=== PATIENT | female | born 1960 | race Caucasian/White ===

== ENCOUNTER 2017-03-29 16:33 | Emergency (ER) | payer SELFPAY ==
[~2017-03-29] VITALS: Ht 167.6 cm; Wt 59.0 kg
[2017-03-29 17:15] VITALS: BP 121/76
[2017-03-29] MEDS ORDERED: NACL 0.9% 1,000 ML IV ONE (18:15)
[2017-03-29] MEDS ORDERED: ONDANSETRON 4 MG/2 ML VIAL IVP ONE (18:15)
[2017-03-29 18:53] LABS: BASOPHILS # (AUTO) 0.2 K/uL (0.00-0.22); EOSINOPHILS # (AUTO) 0.2 K/uL (0-0.4); HEMATOCRIT 40.9 % (36-48); HEMOGLOBIN 13.6 g/dL (12.0-16.0); MEAN CORPUSCULAR HEMOGLOBIN 32 pg (27-31); MEAN CORPUSCULAR HGB CONC 33 g/dL (33-37); MEAN CORPUSCULAR VOLUME 95 fL (80-94); MONOCYTES # (AUTO) 0.3 K/uL (0.8-1.0); NEUTROPHILS # (AUTO) 3.4 K/uL (1.8-7.7); PLATELET COUNT (AUTO) 152 K/uL (140-450); RED BLOOD CELL COUNT(AUTO) 4.29 MIL/uL (4.20-5.40); RED CELL DISTRIBUTION WIDTH 13.1 % (11.6-13.7); WHITE BLOOD COUNT (AUTO) 6.1 K/uL (4.8-10.8)
[2017-03-29 19:02] LABS: ANION GAP 14.2 (8-16); CARBON DIOXIDE 24.2 mmol/L (21-32); CREATININE 0.9 mg/dL (0.6-1.3); POTASSIUM 3.4 mmol/L (3.5-5.1)
[2017-03-29 19:07] LABS: ALBUMIN 3.8 g/dL (3.4-5.0); TOTAL BILIRUBIN 0.4 mg/dL (0.0-1.0)
[2017-03-29] MEDS ORDERED: MULTIVITAMIN-12 10 ML, THIAMINE 100 MG, MAGNESIUM SULFATE 50% 2,000 MG, FOLIC ACID 5 MG... IV ONE ×5 (19:35)
[2017-03-29] MEDS ORDERED: MAGNESIUM SULFATE 50% 1000 MG/2 ML VIAL IV ONE (19:58)
[2017-03-29] MEDS ORDERED: MULTIVITAMIN-12 10 ML VIAL IV ONE (19:58)
[2017-03-29] MEDS ORDERED: FOLIC ACID 5 MG/ML SYR ONE (19:58)
[2017-03-29] MEDS ORDERED: THIAMINE 200 MG/2 ML VIAL ONE (19:58)
[2017-03-29 23:18] LABS: APPEARANCE,URINE CLEAR (CLEAR); BILIRUBIN,URINE NEGATIVE (NEGATIVE); BLOOD, URINE NEGATIVE (NEGATIVE); COLOR,URINE YELLOW (YELLOW); LEUKOCYTE ESTERASE ,URINE NEGATIVE (NEGATIVE); NITRITE, URINE NEGATIVE (NEGATIVE); PH,URINE 5.5 (5.0-9.0); UGLUCOSE NEGATIVE (NEGATIVE)
[2017-03-29 23:28] LABS: BARBITURATE, URINE NEG. ng/ml (NEG <=200); BENZODIAZEPINE, URINE NEG. ng/mL (NEG <=200); CANNABINOID, URINE NEG. ng/mL (NEG <=50); COCAINE, URINE NEG. ng/mL (NEG <=300); OPIATE, URINE NEG. ng/mL (NEG <=2000); PHENCYCLIDINE SCREEN,URINE NEG. ng/mL (NEG <=25)
[2017-03-29 23:40] LABS: RBC,URINE 0-5 (RARE) /HPF (0-5)
[2017-03-29 23:41] LABS: URIC ACID CRYSTALS,URINE 0-10 /HPF (None Seen); WBC,URINE 0-5 (RARE) /HPF (0-5)
[2017-03-30] MEDS ORDERED: NACL 0.9% 1,000 ML IV ONE (00:05)
[2017-03-30] MEDS ORDERED: ONDANSETRON 4 MG/2 ML VIAL IVP ONE (00:05)
[2017-03-30 03:23] VITALS: BP 119/73
== END 2017-03-30 03:23 | disposition home or self-care (01) ==
LOC: MED 16:33
DX: F10.129 Alcohol abuse with intoxication, unspecified (principal); F15.129 Other stimulant abuse with intoxication, unspecified; I10 Essential (primary) hypertension; F31.9 Bipolar disorder, unspecified
CPT/HCPCS: 36415; 80053; 80305; 81001; 85025; 96365; 96366; 96375; 99285; A9153; G0482; J2405; J3411; J3475; J3490; J7030

== ENCOUNTER 2017-05-10 10:05 | Emergency (ER) | payer SELFPAY ==
[~2017-05-10] VITALS: Ht 167.6 cm; Wt 56.7 kg
[~2017-05-10 10:05] MED LIST: LORA-476 PO; QUET25TA46 PO
--- NOTE | 2017-05-10 10:05 | NUR ---
Patient BIBA BLS, transferred to bed 6. RN evaluating patient at bedside.
[2017-05-10 10:14] VITALS: BP 167/111
--- NOTE | 2017-05-10 10:14 | NUR ---
Dr. Jennings evaluating patient at bedside.
[2017-05-10] MEDS ORDERED: NACL 0.9% 1,000 ML IV ONE (10:15)
[2017-05-10] MEDS ORDERED: METOCLOPRAMIDE 10 MG/2 ML INJ VIAL IVP ONE (10:15)
--- NOTE | 2017-05-10 10:15 | NUR ---
PATIENT BROUGHT IN BY AMULANCE FROM THE STREET COMPLAINING OF NAUSEA AND ALCOHOL CONSUMPTION. ASSISTED TO BR UNSTEADY/WHEELCHAIR. PATIENT PERIODS OF TALKING REPEATEDLY AND RESTLESS. MONITORED
--- NOTE | 2017-05-10 10:15 | NUR ---
VANDANAD MADE AWARE BP 167/111. CONTINUE TO MONITOR
[2017-05-10] MEDS ORDERED: THIAMINE 200 MG/2 ML VIAL IM ONE (10:30)
[2017-05-10] MEDS ORDERED: FOLIC ACID 5 MG/ML SYR IM ONE (10:30)
[2017-05-10] MEDS ORDERED: diphenhydrAMINE 50 MG/ML VIAL IVP ONE (11:00)
--- NOTE | 2017-05-10 11:30 | NUR ---
COMMODE AT BEDSIDE
--- NOTE | 2017-05-10 11:45 | NUR ---
BP 200/75 ERMD AWARE.ASYMPTOMATIC
--- NOTE | 2017-05-10 12:32 | NUR ---
PATIENT SLEEPING AT THIS TIME. NO DISTRESS.CONTINUE TO MONITOR
--- NOTE | 2017-05-10 12:45 | NUR ---
PATIENT STATED SHE IS FEELING BETTER
--- NOTE | 2017-05-10 13:00 | NUR ---
PATIENT MORE AWAKE/ALERT/ORIENTED
--- NOTE | 2017-05-10 13:30 | NUR ---
AMBULATED STEADY GAIT. OFFERED FOOD WITH NO VOMITING.DENIES DIZZINESS
[2017-05-10 14:30] VITALS: BP 148/80
--- NOTE | 2017-05-10 14:30 | NUR ---
Patient discharged with v/s stable. Written and verbal after care instructions given and explained. Patient verbalized understanding. Ambulatory with steady gait. All questions addressed prior to discharge. Advised to follow up with PMD.
--- NOTE | 2017-05-10 14:30 | NUR ---
RESOURSE PACKET PROVIDED TO PATIENT AND SIGNED
== END 2017-05-10 14:30 | disposition home or self-care (01) ==
LOC: MED 10:05
DX: F10.129 Alcohol abuse with intoxication, unspecified (principal); I10 Essential (primary) hypertension
CPT/HCPCS: 82948; 96361; 96372; 96374; 96375; 99284; J1200; J2765; J3411; J3490; J7030

== ENCOUNTER 2017-05-12 13:53 | Emergency (ER) | payer MEDICAID ==
[~2017-05-12] VITALS: Ht 167.6 cm; Wt 68.0 kg
--- NOTE | 2017-05-12 13:55 | NUR ---
Patient BIBA to bed 12
[2017-05-12 13:57] VITALS: BP 178/93
--- NOTE | 2017-05-12 13:58 | NUR ---
56 /F COREY FROM FIELD C/O N/V & ETOH . AWAKE AND ALERT ON ARRIVAL. SKIN IS PINK/WARM/DRY; AAOX4 WITH EVEN AND STEADY GAIT; LUNGS CLEAR BL; PT DENIES ANY FEVER, CP, SOB, OR COUGH AT THIS TIME; PATIENT STATES PAIN OF 0/10 AT THIS TIME; PATIENT POSITIONED FOR COMFORT; HOB ELEVATED; BEDRAILS UP X2; BED DOWN. ER MADE AWARE OF PT STATUS. Addendum: 05/12/17 at 1423 by MED1 PER ENT PT MATH ABUSE .
[2017-05-12] MEDS ORDERED: ONDANSETRON 4 MG ODT PO ONE (14:40)
[2017-05-12 14:57] VITALS: BP 158/90
--- NOTE | 2017-05-12 14:57 | NUR ---
Patient discharged with BP158/90; DENIES HEADACHE AT THIS TIME; MD MADE AWARE. Written and verbal after care instructions given and explained. Patient verbalized understanding. Ambulatory with steady gait. All questions addressed prior to discharge. Advised to follow up with PMD.
== END 2017-05-12 14:57 | disposition home or self-care (01) ==
LOC: MED 13:53
DX: F10.20 Alcohol dependence, uncomplicated (principal); I10 Essential (primary) hypertension; F31.9 Bipolar disorder, unspecified
CPT/HCPCS: 81002; 99283; J7030; S0119

== ENCOUNTER 2017-05-12 19:15 | Emergency (ER) | payer MEDICAID ==
[~2017-05-12] VITALS: Ht 167.6 cm; Wt 63.5 kg
--- NOTE | 2017-05-12 19:15 | NUR ---
Patient was BIBA at this time.
--- NOTE | 2017-05-12 19:24 | NUR ---
Joe taken to bed 09 via jayrney per EMS.
[2017-05-12 19:25] VITALS: BP 165/101
[2017-05-12] MEDS ORDERED: MULTIVITAMIN-12 10 ML, THIAMINE 100 MG, MAGNESIUM SULFATE 50% 2,000 MG, FOLIC ACID 5 MG... IV ONE ×5 (19:30)
[2017-05-12] MEDS ORDERED: ONDANSETRON 4 MG/2 ML VIAL IVP ONE ×2 (19:30→23:45)
[2017-05-12] MEDS ORDERED: THIAMINE 200 MG/2 ML VIAL ONE (19:48)
[2017-05-12] MEDS ORDERED: FOLIC ACID 5 MG/ML SYR ONE (19:48)
[2017-05-12] MEDS ORDERED: MAGNESIUM SULFATE 50% 1000 MG/2 ML VIAL IV ONE (19:48)
[2017-05-12] MEDS ORDERED: MULTIVITAMIN-12 10 ML VIAL IV ONE (19:48)
--- NOTE | 2017-05-12 20:00 | NUR ---
56/F BIBA C/O N/V. PT WAS SEEN IN ED EARLIER C/O ABDOMINAL PAIN. PT IS AA&O X4, PERRLA. PT DENIES PAIN AT THIS TIME, PT IS NOT ACTIVELY VOMITING, PT CALM COOPERATIVE, VSS, WILL CONTINUE TO MONITOR.
[2017-05-12 20:02] LABS: BASOPHILS # (AUTO) 0.1 K/uL (0.00-0.22); BASOPHILS % (AUTO) 1.8 % (0.0-2.0); EOSINOPHILS # (AUTO) 0.2 K/uL (0-0.4); EOSINOPHILS % (AUTO) 2.1 % (0.0-4.0); HEMATOCRIT 40.3 % (36-48); HEMOGLOBIN 13.6 g/dL (12.0-16.0); LYMPHOCYTES # (AUTO) 2.8 K/uL (2.5-16.5); LYMPHOCYTES % (AUTO) 33.5 % (20.5-51.1); MEAN CORPUSCULAR HEMOGLOBIN 32 pg (27-31); MEAN CORPUSCULAR HGB CONC 34 g/dL (33-37); MEAN CORPUSCULAR VOLUME 94 fL (80-94); MONOCYTES # (AUTO) 0.5 K/uL (0.8-1.0); MONOCYTES % (AUTO) 5.8 % (1.7-9.3); NEUTROPHILS # (AUTO) 4.7 K/uL (1.8-7.7); NEUTROPHILS % (AUTO) 56.8 % (42.2-75.2); PLATELET COUNT (AUTO) 206 K/uL (140-450); RED BLOOD CELL COUNT(AUTO) 4.31 MIL/uL (4.20-5.40); RED CELL DISTRIBUTION WIDTH 12.6 % (11.6-13.7); WHITE BLOOD COUNT (AUTO) 8.3 K/uL (4.8-10.8)
[2017-05-12 20:28] LABS: ANION GAP 17.3 (8-16); CARBON DIOXIDE 24.4 mmol/L (21-32); CREATININE 0.8 mg/dL (0.6-1.3); POTASSIUM 3.7 mmol/L (3.5-5.1)
[2017-05-12 20:31] LABS: PROTHROMBIN TIME 10.4 secs (10.8-13.4)
[2017-05-12 20:37] LABS: ALBUMIN 3.8 g/dL (3.4-5.0)
--- NOTE | 2017-05-12 20:50 | NUR ---
PT IN BED SLEEPING.
[2017-05-12] MEDS ORDERED: PANTOPRAZOLE 40 MG INJ VIAL IVP ONE (21:00)
--- NOTE | 2017-05-13 01:13 | NUR ---
PT IN BED SLEEPING, WILL CONTINUE TO MONITOR.
--- NOTE | 2017-05-13 05:17 | NUR ---
Pt resting comfortably at this time. VSS. No distress noted.
--- NOTE | 2017-05-13 05:41 | NUR ---
IV removed, catheter intact and site benign. Applied folded 4x4 gauze and tape to stop bleeding.
[2017-05-13 05:46] VITALS: BP 133/91
== END 2017-05-13 05:45 | disposition home or self-care (01) ==
LOC: MED 19:15
DX: F10.129 Alcohol abuse with intoxication, unspecified (principal); K29.20 Alcoholic gastritis without bleeding; I10 Essential (primary) hypertension
CPT/HCPCS: 36415; 80053; 82948; 85025; 85610; 85730; 96365; 96375; 96376; 99284; A9153; C9113; G0482; J2405; J3411; J3475; J3490

== ENCOUNTER 2017-10-04 12:49 | Emergency (ER) | payer SELFPAY ==
[~2017-10-04] VITALS: Ht 167.6 cm; Wt 61.2 kg
[2017-10-04 13:07] VITALS: BP 125/78
--- NOTE | 2017-10-04 13:16 | NUR ---
PT TAKEN BY WHEEL CHAIR TO ER BED 01
--- NOTE | 2017-10-04 13:35 | NUR ---
57 YO F BIB friend w/ c/o left foot/ankle pain. Pt states that her left foot or ankle is broken. Pt lifted her whole leg up, rotating ankle, and wiggling toes. Pt denies pain at this time, reporting pain at 0/10. She is stating that her foot feels numb. Capillary refill less than 3 seconds, foot is warm to the touch w/o any skin discoloration. CMS intact. Pt a & o x 4, but is under the influence of ETOH, as reported by pt. Pt slurring her words, incoherent at times. No s/s of respiratory distress at this time. Skin intact. ER MD Stuart notified of pt condition. Safety precautions initiated. Pt needs met at this time. Will continue to monitor.
--- NOTE | 2017-10-04 14:01 | NUR ---
Pt keeps getting out of bed and ambulating to the nurses station w/ steady gait at this time. Pt educated on importance of staying in bed for her safety related to possible foot injury and ETOH intoxication.
--- NOTE | 2017-10-04 15:04 | NUR ---
Pt refused to sign the discharge paper work. Pt was accepting of discharge with understanding of diagnosis and after care instructions. pt VSS. Bus pass given per pt request.
[2017-10-04 15:05] VITALS: BP 126/72
--- NOTE | 2017-10-04 15:05 | NUR ---
Patient discharged with v/s stable. Written and verbal after care instructions given and explained. Patient alert, oriented and verbalized understanding of instructions. Wheel Chair Assisted with steady gait. All questions addressed prior to discharge. ID band removed. Patient advised to follow up with PMD. Rx of ibuprofen 600mg given. Patient educated on indication of medication including possible reaction and side effects. Opportunity to ask questions provided and answered.
== END 2017-10-04 15:05 | disposition home or self-care (01) ==
LOC: MED 12:49
DX: S82.301D Unspecified fracture of lower end of right tibia, subsequent encounter for closed fracture with routine healing (principal); I10 Essential (primary) hypertension; F17.210 Nicotine dependence, cigarettes, uncomplicated; X58.XXXD Exposure to other specified factors, subsequent encounter; F10.129 Alcohol abuse with intoxication, unspecified; Z71.6 Tobacco abuse counseling
CPT/HCPCS: 73600; 99284; Q0092

== ENCOUNTER 2019-03-09 15:15 | Inpatient (IN) | payer MEDICAID ==
[~2019-03-09] VITALS: Ht 162.6 cm; Wt 70.3 kg
[2019-03-09 15:15] VITALS: BP 176/105
--- NOTE | 2019-03-09 15:15 | NUR ---
PT TO BED 5, SUICIDE PRECAUTIONS IN PLACE, UNDER DIRECT OBSERVATION
--- NOTE | 2019-03-09 15:36 | NUR ---
PER EMS, PATIENT WAS WHEELCHAIRING HERSELF ONTO ONCOMING TRAFFIC ON [address]. PER OFFICER MEGAN Looney/ HERMELINDA BOYD PT ON 5150 HOLD FOR DANGER TO SELF. PT REFUSING TO ANSWER MY QUESTIONS AT THIS TIME. PT ADMITS TO ETOH PMH- PATIENT DENIES
--- NOTE | 2019-03-09 15:55 | NUR ---
PT WHEELCHAIRED TO RESTROOM, UNABLE TO GIVE URINE AT THIS TIME
[2019-03-09 16:08] LABS: BASOPHILS # (AUTO) 0.1 K/uL (0.00-0.22); BASOPHILS % (AUTO) 0.8 % (0.0-2.0); EOSINOPHILS # (AUTO) 0.1 K/uL (0-0.4); EOSINOPHILS % (AUTO) 1.8 % (0.0-4.0); HEMATOCRIT 41.6 % (36-48); LYMPHOCYTES # (AUTO) 2.2 K/uL (2.5-16.5); LYMPHOCYTES % (AUTO) 33.4 % (20.5-51.1); MEAN CORPUSCULAR HEMOGLOBIN 32 pg (27-31); MEAN CORPUSCULAR HGB CONC 34 g/dL (33-37); MEAN CORPUSCULAR VOLUME 94.3 fL (80-94); MONOCYTES # (AUTO) 0.4 K/uL (0.8-1.0); MONOCYTES % (AUTO) 5.5 % (1.7-9.3); NEUTROPHILS # (AUTO) 3.8 K/uL (1.8-7.7); NEUTROPHILS % (AUTO) 58.5 % (42.2-75.2); PLATELET COUNT (AUTO) 160 K/uL (140-450); RED BLOOD CELL COUNT(AUTO) 4.41 MIL/uL (4.20-5.40); WHITE BLOOD COUNT (AUTO) 6.5 K/uL (4.8-10.8)
--- NOTE | 2019-03-09 16:14 | NUR ---
PT WHEEL CHAIRED TO BATHROOM AT THIS TIME TO GIVE URINE SAMPLE, HOLLY RN IS WITH PT
[2019-03-09 16:28] LABS: ANION GAP 15.1 (8-16); CARBON DIOXIDE 24.6 mmol/L (21-32); CHLORIDE 106 mmol/L (98-107); CREATININE 0.8 mg/dL (0.6-1.3); GFR ARICAN-AMERICAN 95 mL/min (>90); GLUCOSE 100 mg/dL (74-106); POTASSIUM 3.7 mmol/L (3.5-5.1); SODIUM SERUM 142 mmol/L (136-145); UREA NITROGEN, BLOOD 14 mg/dL (7-18)
[2019-03-09 16:35] LABS: ACETAMINOPHEN < 0.5 ug/ml (10-30); ALBUMIN 3.9 g/dL (3.4-5.0); ASPARTATE AMINOTRANSFERASE 21 U/L (15-37); SALICYLATE < 2.8 mg/dL (2.8-20.0)
--- NOTE | 2019-03-09 17:11 | NUR ---
PT IS SLEEPING, FOOD TRAY HAS BEEN BROUGHT, BETTINA RN IS SITTING AT BEDSIDE.
--- NOTE | 2019-03-09 18:02 | NUR ---
PT SLEEPING, O2 SAT 96%. FLASH EMT SITTING AT BEDSIDE.
[2019-03-09 18:30] LABS: APPEARANCE,URINE CLEAR (CLEAR); BILIRUBIN,URINE NEGATIVE (NEGATIVE); BLOOD, URINE NEGATIVE (NEGATIVE); COLOR,URINE YELLOW (YELLOW); LEUKOCYTE ESTERASE ,URINE NEGATIVE (NEGATIVE); NITRITE, URINE NEGATIVE (NEGATIVE); PH,URINE 5.5 (5.0-9.0); UGLUCOSE NEGATIVE (NEGATIVE)
[2019-03-09 18:37] LABS: BARBITURATE, URINE NEG. ng/ml (NEG <=200); BENZODIAZEPINE, URINE NEG. ng/mL (NEG <=200); CANNABINOID, URINE NEG. ng/mL (NEG <=50); COCAINE, URINE NEG. ng/mL (NEG <=300); OPIATE, URINE NEG. ng/mL (NEG <=2000); PHENCYCLIDINE SCREEN,URINE NEG. ng/mL (NEG <=25)
--- NOTE | 2019-03-09 18:56 | NUR ---
PT SITTING UP IN BED, EATING DINNER. PT DENIES PAIN AT THIS TIME, CALM AND COOPERATIVE.
--- NOTE | 2019-03-09 19:06 | NUR ---
pt hypertensive w/ bp 195/83, er notified
--- NOTE | 2019-03-09 19:25 | NUR ---
RECEIVED BEDSIDE REPORT FROM MIGUEL JUNIOR
[2019-03-09] MEDS ORDERED: NACL 0.9% 1,000 ML IV ONE (21:25)
--- NOTE | 2019-03-09 21:47 | NUR ---
PER TELEPSCYH REQUEST INTIATED
--- NOTE | 2019-03-09 22:50 | NUR ---
PT UNCOOPERATIVE WITH CALL FROM PSYCH
--- NOTE | 2019-03-10 01:26 | NUR ---
PT IS SLEEPING IN BED. SITTER AT BEDSIDE. VSS. WILL CONTINUE TO MONITOR.
--- NOTE | 2019-03-10 02:18 | NUR ---
PER JAYLA PACKETS FAXED TO THE FOLLOWING DESIGNATED FACILITIES, [facility], [facility], [facility], PACKETS UNDER REVIEW NO BEDS AT THIS TIME, WILL NOTIFY ER WHEN PLACEMENT IS FOUND
--- NOTE | 2019-03-10 02:32 | NUR ---
PT SLEEPING IN BED NO SIGNS OF DISTRESS. NO PAIN NOTED. EVEN UNLABORED BREATHING. WILL CONTINUE TO MONITOR.
[2019-03-10] MEDS ORDERED: ACETAMINOPHEN 325 MG TAB PO PRN (02:40)
[2019-03-10] MEDS ORDERED: FAMOTIDINE 20 MG/2 ML VIAL IV PRN (02:40)
[2019-03-10] MEDS ORDERED: HYDROcodone/APAP 5/325 MG 1 TAB TAB PO PRN (02:40)
[2019-03-10] MEDS ORDERED: DOCUSATE SODIUM 100 MG GELCAP PO PRN (02:40)
[2019-03-10] MEDS ORDERED: ONDANSETRON 4 MG/2 ML VIAL IM/IVP PRN (02:40)
[2019-03-10] MEDS ORDERED: LORazepam 2 MG/ML VIAL IVP PRN (02:45)
[2019-03-10] MEDS ORDERED: THIAMINE 200 MG/2 ML VIAL IM ONE (02:45)
--- NOTE | 2019-03-10 02:52 | NUR ---
X RAY AT BEDSIDE
[2019-03-10 03:20] VITALS: BP 162/98
--- NOTE | 2019-03-10 03:20 | NUR ---
Patient will be admitted to care of [facility]. Admited to TELE. Will go to room 109B. Belongings list completed. Report to ENEIDA BORREGO.
--- NOTE | 2019-03-10 03:20 | NUR ---
PATIENT ADMITTED TO THE UNIT FROM ED. PATIENT AWAKE, ALERT AND ORIENTED. PT DENIES ANY SUICIDAL IDEATION AT THIS TIME. [facility] NO S/S OF DISTRESS AT THIS TIME. PT ON ROOM AIR. NO SOB NO C/O CHEST PAIN. PATIENT PLACED ON TELE MONITORING. BED LOWERED WITH CALL LIGHT WITHIN REACH. PATIENT WITH SITTER. WILL CONTINUE TO MONITOR
[2019-03-10 03:42] LABS: EOSINOPHILS # (AUTO) 0.1 K/uL (0-0.4); LYMPHOCYTES # (AUTO) 1.5 K/uL (2.5-16.5); MONOCYTES # (AUTO) 0.5 K/uL (0.8-1.0); RED BLOOD CELL COUNT(AUTO) 4.06 MIL/uL (4.20-5.40)
[2019-03-10 03:43] LABS: CHOL/HDL RATIO 2.9 (1-4.5); FREE T4 (FREE THYROXINE) 0.68 ng/dL (0.76-1.46); MAGNESIUM 1.5 mg/dL (1.8-2.4); PHOSPHORUS 3.4 mg/dL (2.5-4.9); THYROID STIMULATING HORMONE 1.41 uIU/mL (0.34-3.74)
[2019-03-10] MEDS: NACL 0.9% 1,000 ML IV SCH ×3 (03:57→23:10)
[2019-03-10 04:02] LABS: PROTHROMBIN TIME 10.2 secs (10.8-13.4)
[2019-03-10 04:07] LABS: BASOPHILS % (AUTO) 0.3 % (0.0-2.0); EOSINOPHILS % (AUTO) 1.7 % (0.0-4.0); HEMATOCRIT 38.3 % (36-48); LYMPHOCYTES % (AUTO) 20.6 % (20.5-51.1); MEAN CORPUSCULAR HEMOGLOBIN 32 pg (27-31); MEAN CORPUSCULAR HGB CONC 34 g/dL (33-37); MEAN CORPUSCULAR VOLUME 94.2 fL (80-94); MONOCYTES % (AUTO) 6.8 % (1.7-9.3); NEUTROPHILS # (AUTO) 5.3 K/uL (1.8-7.7); NEUTROPHILS % (AUTO) 70.6 % (42.2-75.2); PLATELET COUNT (AUTO) 171 K/uL (140-450); RED CELL DISTRIBUTION WIDTH 13.1 % (11.6-13.7); WHITE BLOOD COUNT (AUTO) 7.5 K/uL (4.8-10.8)
[2019-03-10] MEDS ORDERED: hydrALAZINE 20 MG/ML VIAL IVP PRN (04:10)
--- NOTE | 2019-03-10 04:35 | NUR ---
NOTIFIED DR DODGE ABOUT THE ST DEPRESSION ON PATIENT'S ADMIT STRIP. NO S/S OF DISTRESS NOTED AT THIS TIME. TO PUT AN ORDER TO REPEAT EKG
[2019-03-10] MEDS ORDERED: MAG SULF 2000 MG/WATER PREMIX 50 ML IV ONE (04:40)
[2019-03-10] MEDS: chlordiazePOXIDE 25 MG CAP PO SCH ×4 (05:00→23:09)
[2019-03-10 05:02] LABS: ANION GAP 16.3 (8-16); CARBON DIOXIDE 22.6 mmol/L (21-32); CREATININE 0.7 mg/dL (0.6-1.3); POTASSIUM 3.9 mmol/L (3.5-5.1)
[2019-03-10 07:23] VITALS: BP 152/96
--- NOTE | 2019-03-10 07:33 | NUR ---
PATIENT REPORT GIVEN AT BEDSIDE. PATIENT ENDORSED IN STABLE CONDITION
--- NOTE | 2019-03-10 07:34 | NUR ---
RECEIVED REPORT FROM SANDER AND POLISHER NURSE. PT LYING IN BED, AAOX4, NO C/O PAIN AT THIS TIME. PT ON SOLUTIONS DEVELOPMENT ANALYST D/T DX ALCOHOL INTOXICATION. IV ON LT AC 18 GA RUNNING IVF PER ORDER. RESPIRATIONS EVEN AND UNLABORED ON RA. ACTIVE BOWEL SOUNDS THROUGHOUT, ABD SOFT. SKIN IS INTACT, WARM TO TOUCH. REVIEWED POC WITH PT, PT VERBALIZED UNDERSTANDING.
[2019-03-10 08:00] VITALS: BP 146/92
[2019-03-10] MEDS: OLANZapine 5 MG TAB PO SCH (08:01)
[2019-03-10] MEDS: LISINOPRIL 5 MG TAB PO SCH (08:01)
[2019-03-10] MEDS: ATORVASTATIN 20 MG TAB PO SCH (08:01)
[2019-03-10] MEDS: LORazepam 2 MG/ML VIAL IVP PRN (08:02)
--- NOTE | 2019-03-10 08:02 | NUR ---
PT IS SHOWS SIGNS OF ANXIETY, UNEASY AND RESTLESS IN BED, TURNING LEFT TO RIGHT. STATES "CAN I GET SOMETHING FOR DISCOMFORT, I'M A LITTLE ANXIOUS". GIVEN ATIVAN PER ORDER. PT ALSO STATES, "I HAVE A YEAST INFECTION", WILL CHECK LABS AND NOTIFY DR. KYLE. WILL REASSESS PT WITHIN 1 HOUR.
--- NOTE | 2019-03-10 08:22 | NUR ---
PATIENT HAS BEEN SCREENED AND CATEGORIZED LOW NUTRITION RISK. PATIENT WILL BE SEEN WITHIN 7 DAYS OF ADMISSION. 03/16/[address]
--- NOTE | 2019-03-10 08:23 | NUR ---
DR. KYLE NOTIFIED REGARDING PT'S CONCERNS. NO ORDERS RECEIVED AT THIS TIME, AWAITING ORDERS AND LAB RESULTS.
[2019-03-10] MEDS: MULTIVITAMIN-12 10 ML, THIAMINE 100 MG, FOLIC ACID 1 MG, MAGNESIUM SULFATE 50% 2,000 MG... IV SCH ×10 (08:42→17:10)
[2019-03-10] MEDS ORDERED: QUEtiapine FUMARATE 25 MG TAB PO SCH (09:00)
--- NOTE | 2019-03-10 09:02 | NUR ---
PT HAS NO SIGNS OF DISTRESS, RESTING COMFORTABLY IN BED ON LEFT LATERAL SIDE. RESPIRATIONS EVEN AND UNLABORED ON RA. 1:1 SITTER AT BEDSIDE.
[2019-03-10 12:00] VITALS: BP 145/85
--- NOTE | 2019-03-10 13:57 | NUR ---
GIVEN LIBRIUM PER ORDER. PT HAS NO SIGNS OF DISTRESS AT THIS TIME. RESPIRATIONS EVEN AND UNLABORED ON RA.
--- NOTE | 2019-03-10 14:29 | NUR ---
SW attempted to conduct assessment with patient. Patient was asleep and was not responding to SW calling patient's name. SW will follow up at a later time to complete assessment.
--- NOTE | 2019-03-10 14:52 | NUR ---
[facility] s/w Beatriz, no beds [facility] s/w Gnosticist packet faxed [place] s/w Jazzy no beds but packet faxed for transfer [facility] s/w Clifton no beds [facility] s/w Keeley no beds [facility] s/w Stephanie packet faxed [facility] Nasreen no beds but packet fax for wait list
[2019-03-10 16:00] VITALS: BP 143/84
--- NOTE | 2019-03-10 16:45 | NUR ---
PT IS RESTING AT THIS TIME. RESPIRATIONS EVEN AND UNLABORED ON RA.
--- NOTE | 2019-03-10 18:44 | NUR ---
GIVEN LIBRIUM PER ORDER. PT HAS NO SIGNS OF ANXIETY. RESTING COMFORTABLY IN BED.
--- NOTE | 2019-03-10 19:10 | NUR ---
ENDORSED PT TO CLOUD OPERATIONS ENGINEER NURSE. PT HAS NO SIGNS OF DISTRESS AT THIS TIME.
--- NOTE | 2019-03-10 19:15 | NUR ---
RECEIVED PT ON BED, AAOX4, ABLE TO MAKE NEEDS KNOWN, DENIES ANY PAIN, CALM AND COOPERATIVE, IVF INFUSING WELL, IVF INFUSING WELL, SAFETY AND SEIZURE PRECAUTION IN PLACE, SITTER AT BEDSIDE.
[2019-03-10 20:00] VITALS: BP 129/69
--- NOTE | 2019-03-10 21:25 | NUR ---
EASILY AROUSABLE, DUE HEPARIN SUB-Q ADMINISTERED, PT WENT BACK TO SLEEP, ALL NEEDS ATTENDED.
--- NOTE | 2019-03-10 23:10 | NUR ---
PT SLEEPING, EASILY AROUSABLE, CALM AND COOPERATIVE, DENIES ANXIETY, VITAL SIGNS STABLE, DUE LIBRIUM ADMINISTERED, IVF INFUSING WELL, CONTINUE TO MONITOR CLOSELY.
[2019-03-11] VITALS: BP 115/70
[2019-03-11] MEDS: MULTIVITAMIN-12 10 ML, THIAMINE 100 MG, FOLIC ACID 1 MG, MAGNESIUM SULFATE 50% 2,000 MG... IV SCH ×5 (03:20)
--- NOTE | 2019-03-11 03:40 | NUR ---
PT SLEEPING, EASILY AROUSABLE, VITAL SIGNS STABLE, DENIES ANY PAIN, IVF INFUSING WELL, OT WENT BACK TO SLEEP, SITTER IN PLACE, MONITORED CLOSELY.
[2019-03-11 04:00] VITALS: BP 136/81
--- NOTE | 2019-03-11 04:33 | NUR ---
Continuing to monitor patient notes and resend intake paperwork for placement. The following facilities have been called for bed status. [facility] - [place] - No Beds [facility] - [place] - Sent intake paperwork for possible placement in morning [facility] - Becki - No Beds [facility] - Sent intake paperwork for possible placement in morning [facility] - [place] - Sent intake paperwork for possible placement in morning [facility] - [place] - Sent intake paperwork for possible placement in morning [facility] - No Beds
[2019-03-11] MEDS: chlordiazePOXIDE 25 MG CAP PO SCH ×4 (05:25→23:16)
--- NOTE | 2019-03-11 05:30 | NUR ---
DUE LIBRIUM GIVEN, NO SEIZURE ACTIVITY THE WHOLE, CALM AND COOPERATIVE, MONITORED CLOSELY.
--- NOTE | 2019-03-11 07:10 | NUR ---
PT SLEEPING, NO SIGNS OF DISTRESS, SITTER IN PLACE, REPORT GIVEN TO ELMO ALMENDAREZ FOR CONTINUITY OF CARE.
--- NOTE | 2019-03-11 07:11 | NUR ---
RECEIVED REPORT FROM INDUCTION COORDINATION POWER ENGINEER NURSE. PT AAOX4, NO C/O PAIN AT THIS TIME. PT ON SUPERVISOR INTERMEDIATES. IV ON LT AC 18 GA RUNNING IVF PER ORDER. RESPIRATIONS EVEN AND UNLABORED ON RA. ABD SOFT, ACTIVE BOWEL SOUNDS THROUGHOUT. SKIN IS INTACT, WARM TO TOUCH. REVIEWED POC WITH PT, PT VERBALIZED UNDERSTANDING.
[2019-03-11 08:00] VITALS: BP 141/85
[2019-03-11] MEDS: ATORVASTATIN 20 MG TAB PO SCH (09:17)
[2019-03-11] MEDS: OLANZapine 5 MG TAB PO SCH (09:17)
[2019-03-11] MEDS: NACL 0.9% 1,000 ML IV SCH ×2 (09:17→16:33)
[2019-03-11] MEDS: LISINOPRIL 5 MG TAB PO SCH (09:17)
--- NOTE | 2019-03-11 09:17 | NUR ---
PT GIVEN MORNING MEDICATIONS, COOPERATIVE AND CALM. PT HAS NO SIGNS OF ANXIETY.
--- NOTE | 2019-03-11 11:42 | NUR ---
We have no new updates from the following facilities: [facility] Carlos Antonio
--- NOTE | 2019-03-11 13:08 | NUR ---
PT IS RESTING, PT SAYS "NO" WHEN ASKED IF SHE HAS THOUGHTS OF HURTING HERSELF. GIVEN LIBRIUM PER ORDER, NO SIGNS OF ANXIETY OR DISTRESS AT THIS TIME.
--- NOTE | 2019-03-11 15:37 | NUR ---
Packet re-faxed to [facility] for review.
[2019-03-11 16:00] VITALS: BP 143/89
[2019-03-11 16:17] LABS: ANION GAP 11.9 (8-16); BASOPHILS % (AUTO) 0.5 % (0.0-2.0); CARBON DIOXIDE 26.9 mmol/L (21-32); CREATININE 0.7 mg/dL (0.6-1.3); EOSINOPHILS # (AUTO) 0.1 K/uL (0-0.4); EOSINOPHILS % (AUTO) 2.7 % (0.0-4.0); HEMATOCRIT 37.9 % (36-48); HEMOGLOBIN 12.8 g/dL (12.0-16.0); LYMPHOCYTES # (AUTO) 1.1 K/uL (2.5-16.5); LYMPHOCYTES % (AUTO) 28.7 % (20.5-51.1); MEAN CORPUSCULAR HEMOGLOBIN 32 pg (27-31); MEAN CORPUSCULAR HGB CONC 34 g/dL (33-37); MEAN CORPUSCULAR VOLUME 95.2 fL (80-94); MONOCYTES # (AUTO) 0.3 K/uL (0.8-1.0); MONOCYTES % (AUTO) 8.4 % (1.7-9.3); NEUTROPHILS # (AUTO) 2.3 K/uL (1.8-7.7); NEUTROPHILS % (AUTO) 59.7 % (42.2-75.2); PLATELET COUNT (AUTO) 163 K/uL (140-450); POTASSIUM 3.8 mmol/L (3.5-5.1); RED BLOOD CELL COUNT(AUTO) 3.99 MIL/uL (4.20-5.40); RED CELL DISTRIBUTION WIDTH 13.3 % (11.6-13.7); WHITE BLOOD COUNT (AUTO) 3.9 K/uL (4.8-10.8)
[2019-03-11 16:20] LABS: MAGNESIUM 1.6 mg/dL (1.8-2.4)
[2019-03-11] MEDS ORDERED: LACTOBACILLUS RHAMNOSUS GG 1 EACH CAP PO SCH (17:09)
--- NOTE | 2019-03-11 17:46 | NUR ---
IV ROCEPHIN ADMINISTERED, PT IS AWARE OF POSSIBLE SIDE EFFECTS.
[2019-03-11] MEDS ORDERED: FLUCONAZOLE 100 MG TAB PO SCH (18:00)
[2019-03-11] MEDS ORDERED: MAG SULF 2000 MG/WATER PREMIX 50 ML IV SCH (18:00)
--- NOTE | 2019-03-11 18:56 | NUR ---
PT GIVEN MAGNESIUM, PT IS AWARE OF LOW MAG LEVEL.
--- NOTE | 2019-03-11 19:30 | NUR ---
ASSUMED CARE OF PATIENT, AWAKE, NO COMPLAINS. PLAN OF CARE DISCUSSED WITH PATIENT, NEEDS REINFORCEMENT. NO DISTRESS OR DISCOMFORT NOTED.
--- NOTE | 2019-03-11 19:35 | NUR ---
ENDORSED PT TO DESIZING MACHINE OPERATOR HEAD END NURSE. NO SIGNS OF DISTRESS AT THIS TIME.
[2019-03-11] MEDS: LORazepam 2 MG/ML VIAL IVP PRN (20:26)
--- NOTE | 2019-03-11 21:30 | NUR ---
USE BEDPAN, TOLERATED WELL. NO COMPLAINS. SITTER AT BEDSIDE AT ALL TIMES.
[2019-03-12 00:18] VITALS: BP 137/83
--- NOTE | 2019-03-12 00:20 | NUR ---
VITAL SIGNS STABLE. NO COMPLAINS. SLEEPING WELL. SITTER BEDSIDE 1:1.
--- NOTE | 2019-03-12 02:00 | NUR ---
ASLEEP. NO COMPLAINS. SITTER AT BEDSIDE AT ALL TIME.
--- NOTE | 2019-03-12 03:55 | NUR ---
Follow up calls were made to contracted facilities, still no bed vacancies at this time and during this shift. [facility], spoke with [place]. [facility], spoke with Garry. [facility], spoke with Ivan. [facility], spoke with Mandy. [facility], spoke with Carol. [facility], spoke with Najma,
--- NOTE | 2019-03-12 04:51 | NUR ---
AM CARE DONE, COMPLETE BED LINEN CHANGE. PERICARE DONE. NO COMPLAINS. SITTER AT BEDSIDE AT ALL TIME.
[2019-03-12] MEDS: NACL 0.9% 1,000 ML IV SCH (05:17)
[2019-03-12] MEDS: chlordiazePOXIDE 25 MG CAP PO SCH ×3 (05:35→18:04)
--- NOTE | 2019-03-12 06:00 | NUR ---
ENDORSE CARE AT BEDSIDE FOR KALEN ROWLEY.
[2019-03-12 06:07] LABS: FOLIC ACID 5.5 ng/mL (>3.0)
--- NOTE | 2019-03-12 07:14 | NUR ---
ENDORSED CARE AT BEDSIDE WITH SHERIE, PATIENT IN STABLE CONDITION.
--- NOTE | 2019-03-12 07:15 | NUR ---
Received bedside report from pm nurse Selam. Pt amb from restroom back to bed with 1-person min assist. Pt in no distress, respirations even & unlabored. Left AC IV intact with ongoing NS @ 100ml/hr. Sitter at bedside for continuous monitoring.
[2019-03-12 07:17] LABS: CARBON DIOXIDE 25.1 mmol/L (21-32); CREATININE 0.6 mg/dL (0.6-1.3); POTASSIUM 4.1 mmol/L (3.5-5.1)
[2019-03-12 07:21] LABS: MAGNESIUM 1.7 mg/dL (1.8-2.4); PHOSPHORUS 4.2 mg/dL (2.5-4.9)
[2019-03-12 07:46] LABS: BASOPHILS % (AUTO) 0.5 % (0.0-2.0); EOSINOPHILS # (AUTO) 0.1 K/uL (0-0.4); EOSINOPHILS % (AUTO) 2.7 % (0.0-4.0); HEMATOCRIT 38.6 % (36-48); LYMPHOCYTES # (AUTO) 1.1 K/uL (2.5-16.5); MEAN CORPUSCULAR HEMOGLOBIN 32 pg (27-31); MEAN CORPUSCULAR HGB CONC 34 g/dL (33-37); MEAN CORPUSCULAR VOLUME 95.6 fL (80-94); MONOCYTES # (AUTO) 0.4 K/uL (0.8-1.0); NEUTROPHILS # (AUTO) 2.9 K/uL (1.8-7.7); NEUTROPHILS % (AUTO) 63.8 % (42.2-75.2); PLATELET COUNT (AUTO) 189 K/uL (140-450); RED BLOOD CELL COUNT(AUTO) 4.04 MIL/uL (4.20-5.40); RED CELL DISTRIBUTION WIDTH 13.6 % (11.6-13.7); WHITE BLOOD COUNT (AUTO) 4.6 K/uL (4.8-10.8)
[2019-03-12 08:00] VITALS: BP 142/97
[2019-03-12] MEDS: LISINOPRIL 5 MG TAB PO SCH (09:25)
[2019-03-12] MEDS: ATORVASTATIN 20 MG TAB PO SCH (09:25)
[2019-03-12] MEDS: OLANZapine 5 MG TAB PO SCH (09:25)
[2019-03-12] MEDS: LACTOBACILLUS RHAMNOSUS GG 1 EACH CAP PO SCH (09:26)
[2019-03-12] MEDS ORDERED: MAGNESIUM OXIDE 400 MG TAB PO SCH (09:30)
--- NOTE | 2019-03-12 09:31 | NUR ---
Pt c/o no BM x4days, states she usually has BM daily prior to admission, denies any abd discomfort. DSS administered with 2 cups of prune juice. Encouraged pt to drink plenty of fluids as rosetta, verbalized understanding & agree with POC.
--- NOTE | 2019-03-12 10:47 | NUR ---
RECEIVED A CALL FROM [facility], SHE STATED THAT THEY NEED DOCUMENTATION THAT THE PATIENT IS MEDICALLY CLEARED AND 5150 HOLD NEED TO BE RENEWED SO THEY CAN SEND OUT REFERRALS TO IN PATIENT PSYCH FACILITIES. CHARGE NURSE AND DR. AMY WEISS.
--- NOTE | 2019-03-12 11:33 | NUR ---
Contacted [facility] spoke with Reconstructive Dentist,Shannon, regarding clarification of medical clearance. Per Shannon, she spoke with Charge Nurse and patient is medically cleared. Advised her to add documentation to the chart of medical clearance for us to fax to facilities for potential placement. Also, advised of 5150 expiring today, per Shannon she will follow up with clinician.
[2019-03-12 16:00] VITALS: BP 134/86
--- NOTE | 2019-03-12 19:17 | NUR ---
Report given to pm nurse Vince.
--- NOTE | 2019-03-12 19:18 | NUR ---
Received endorsement from AM shift RN; patient resting comfortably in bed. Introduced self. No SOB or distress noted, on room air. IV site on left antecubital, 18 gauge, running IVF at 100mL/hr. Bed in the lowest position, call light within reach. Initial assessment done. Will continue to monitor.
--- NOTE | 2019-03-12 20:41 | NUR ---
Dr. Springer at bedside; discontinued hold and verbalized patient is medically cleared to be discharged 03/13/2019 in AM.
--- NOTE | 2019-03-12 21:50 | NUR ---
Due meds given, tolerated well.
--- NOTE | 2019-03-12 23:50 | NUR ---
Vitals taken, no distress noted. Patient dislodged IV; cannula removed, tip intact. Made Dr. Parnell aware.
[2019-03-13] VITALS: BP 153/76
[2019-03-13] MEDS: chlordiazePOXIDE 25 MG CAP PO SCH ×3 (00:08→11:33)
[2019-03-13] MEDS ORDERED: LORazepam 1 MG TAB PO PRN (02:25)
--- NOTE | 2019-03-13 02:25 | NUR ---
Patient awake and agitated, asking for her wheelchair and "bag". Security notified and verbalized to patient that it will be kept by security till patient is discharged. Patient calmed down and went to bed.
--- NOTE | 2019-03-13 04:20 | NUR ---
Room assignment changed to 124B. No distress noted.
--- NOTE | 2019-03-13 06:06 | NUR ---
Vitals stable, due meds given. Will endorse to AM shift RN for continuity of care.
--- NOTE | 2019-03-13 07:05 | NUR ---
REPORT RECEIVED FROM CATERERS HELPER NURSE AT BEDSIDE FOR CONTINUITY OF CARE. PATIENT ASLEEP, AOX4. RESPIRATIONS EVEN AND UNLABORED ON ROOM AIR, NO SIGN OF DISTRESS OR SOB NOTED. FLACC-0. NO IV SITE. PATIENT DISLODGED IV DURING NIGHT, REFUSED NEW INSERTION AT THE MOMENT. UPDATED BOARD. SAFETY PRECAUTIONS IN PLACE, CALL LIGHT WITHIN REACH, WILL CONTINUE TO MONITOR PATIENT.
[2019-03-13 07:27] LABS: BASOPHILS % (AUTO) 0.4 % (0.0-2.0); EOSINOPHILS # (AUTO) 0.1 K/uL (0-0.4); EOSINOPHILS % (AUTO) 3.2 % (0.0-4.0); HEMATOCRIT 39.7 % (36-48); HEMOGLOBIN 13.6 g/dL (12.0-16.0); LYMPHOCYTES # (AUTO) 1.1 K/uL (2.5-16.5); LYMPHOCYTES % (AUTO) 22.6 % (20.5-51.1); MEAN CORPUSCULAR HEMOGLOBIN 33 pg (27-31); MEAN CORPUSCULAR HGB CONC 34 g/dL (33-37); MEAN CORPUSCULAR VOLUME 95.3 fL (80-94); MONOCYTES # (AUTO) 0.4 K/uL (0.8-1.0); MONOCYTES % (AUTO) 7.6 % (1.7-9.3); NEUTROPHILS # (AUTO) 3.1 K/uL (1.8-7.7); NEUTROPHILS % (AUTO) 66.2 % (42.2-75.2); PLATELET COUNT (AUTO) 169 K/uL (140-450); RED BLOOD CELL COUNT(AUTO) 4.16 MIL/uL (4.20-5.40); RED CELL DISTRIBUTION WIDTH 13.5 % (11.6-13.7); WHITE BLOOD COUNT (AUTO) 4.7 K/uL (4.8-10.8)
[2019-03-13 07:41] LABS: ANION GAP 11.8 (8-16); CARBON DIOXIDE 27.1 mmol/L (21-32); CREATININE 0.6 mg/dL (0.6-1.3); POTASSIUM 3.9 mmol/L (3.5-5.1)
[2019-03-13 07:57] LABS: MAGNESIUM 1.7 mg/dL (1.8-2.4); PHOSPHORUS 4.5 mg/dL (2.5-4.9)
[2019-03-13 08:00] VITALS: BP 176/107
[2019-03-13] MEDS: ATORVASTATIN 20 MG TAB PO SCH (09:06)
[2019-03-13] MEDS: LACTOBACILLUS RHAMNOSUS GG 1 EACH CAP PO SCH (09:06)
[2019-03-13] MEDS: LISINOPRIL 5 MG TAB PO SCH (09:06)
[2019-03-13] MEDS: OLANZapine 5 MG TAB PO SCH (09:06)
--- NOTE | 2019-03-13 09:06 | NUR ---
ORDERED MEDICATIONS GIVEN. PATIENT TOLERATED THEM WELL. PATIENT INQUIRE ABOUT PLAN FOR DAY, ASKING ABOUT DISCHARGE. INFORMED PATIENT DOCTORS. WILL WAIT FOR DOCTOR TO COME IN TO SPEAK WITH PATIENT. WILL CONTINUE TO MONITOR PATIENT.
[2019-03-13 10:10] VITALS: BP 154/80
--- NOTE | 2019-03-13 10:14 | NUR ---
PATIENT SITTING UP IN BED CRYING. INFORMED HER DR. MILIAN AWARE AND WILL COME SPEAK TO HER WHEN AVAILABLE. ABOUT PATIENT'S BELONGINGS AND WHEELCHAIR, INFORMED HER SECURITY HAS IT. WILL CONTINUE TO MONITOR PATIENT.
--- NOTE | 2019-03-13 10:21 | NUR ---
PATIENT CRYING, ANXIOUS. CALLED SECURITY TO BRING PATIENT'S WHEELCHAIR AND BELONGINGS. PATIENT AWARE AND NOW CALM. WILL CONTINUE TO MONITOR PATIENT.
--- NOTE | 2019-03-13 10:31 | NUR ---
CLEAN CLOTHING BROUGHT FROM SECURITY ALONG WITH PATIENT'S WHEELCHAIR AND BELONGINGS. PATIENT REQUEST TO TALK TO DOCTOR ABOUT GOING AGAINST [facility]. WILL INFORM DOCTOR.
--- NOTE | 2019-03-13 11:06 | NUR ---
DOCTOR IN TO SPEAK TO PATIENT. PATIENT AGREEABLE TO DISCHARGE PLAN INSTEAD OF AMA. WAITING FOR DISCHARGE ORDER.
[2019-03-13] MEDS ORDERED: MAGNESIUM HYDROXIDE 2400 MG/30 ML UDC PO SCH (11:15)
[2019-03-13] MEDS ORDERED: MAGNESIUM OXIDE 400 MG TAB PO SCH (11:15)
[2019-03-13] MEDS ORDERED: OLAN5TAB30 PO (11:19)
[2019-03-13] MEDS ORDERED: LISI-424 PO (11:19)
--- NOTE | 2019-03-13 11:33 | NUR ---
ORDERED MEDICATIONS GIVEN. PATIENT TOLERATED THEM. PATIENT UPSET, ASKING "WHERE'S MY PURSE?" INFORMED PATIENT EVERYTHING BROUGHT WAS WHAT SECURITY HAS. CALLED SECURITY TO VERIFY. RESIDENTIAL RECYCLE DRIVER CAME TO SPEAK TO PATIENT ABOUT HER BELONGINGS LIST. NURSING MATHEMATICAL ENGINEER IGNACIO WEISS. WILL CONTINUE TO MONITOR PATIENT.
--- NOTE | 2019-03-13 11:40 | NUR ---
PATIENT SIGNED DISCHARGE PAPERWORK. PRESCRIPTION GIVEN TO PATIENT WITH INFO ABOUT MD FOLLOW UP. ID BANDS CUT. PATIENT DOES NOT HAVE IV ACCESS. PATIENT CHANGED INTO CLOTHING BROUGHT BY SECURITY. PATIENT GETTING READY TO BE DISCHARGE, WAITING FOR BUS PASS. PATIENT STATES THAT SHE STAYS AT [facility] ON [address] AND WILL BE GOING THERE AFTER DISCHARGE VIA BUS. NURSING MENTAL MEASUREMENTS TEACHER AWARE.
--- NOTE | 2019-03-13 11:55 | NUR ---
PATIENT WHEELED OFF FLOOR VIA HER WHEELCHAIR AND BELONGINGS TO NURSING OFFICE. NURSING BACK END ARCHITECT IGNACIO SPOKE TO PATIENT ABOUT BUS PASS. PATIENT UPSET. PATIENT IN STABLE CONDITION.
== END 2019-03-13 11:52 | disposition home or self-care (01) | DRG 775 ==
LOC: MED 15:15 → MTU 03-10 02:43
PROVIDERS: ADMIT General Practice; ATTEND General Practice
DX: F10.129 Alcohol abuse with intoxication, unspecified (principal); G92 Toxic encephalopathy; E44.0 Moderate protein-calorie malnutrition; K72.90 Hepatic failure, unspecified without coma; R45.851 Suicidal ideations; Y90.8 Blood alcohol level of 240 mg/100 ml or more; F31.9 Bipolar disorder, unspecified; F29 Unspecified psychosis not due to a substance or known physiological condition; N39.0 Urinary tract infection, site not specified; I10 Essential (primary) hypertension; F17.210 Nicotine dependence, cigarettes, uncomplicated; I16.0 Hypertensive urgency; E53.8 Deficiency of other specified B group vitamins; E78.5 Hyperlipidemia, unspecified; E83.42 Hypomagnesemia; D75.89 Other specified diseases of blood and blood-forming organs; Z91.14 Patient's other noncompliance with medication regimen; Z68.26 Body mass index [BMI] 26.0-26.9, adult; Z59.0 Homelessness
CPT/HCPCS: 36415; 71045; 80048; 80053; 80305; 81003; 82140; 82150; 82607; 82746; 83036; 83605; 83690; 83735; 83880; 84100; 84439; 84443; 84484; 85025; 85610; 85730; 87081; 93005; 96360; 99285; A9153; G0480; G0482; J0360; J0696; J1644; J2060; J2405; J3411; J3475; J3490; J7030; J7060; Q0092

== ENCOUNTER 2019-03-17 19:14 | Emergency (ER) | payer MEDICAID ==
[~2019-03-17] VITALS: Ht 167.6 cm; Wt 59.0 kg
[~2019-03-17 19:14] MED LIST changes: +LISI-424 PO; -LORA-476 PO; +OLAN5TAB30 PO; -QUET25TA46 PO
== END 2019-03-17 21:54 ==
LOC: MED 19:14
DX: M25.571 Pain in right ankle and joints of right foot (principal); F10.129 Alcohol abuse with intoxication, unspecified; Z02.1 Encounter for pre-employment examination; Z79.899 Other long term (current) drug therapy
CPT/HCPCS: 73610; 73700; 99284

== ENCOUNTER 2019-07-21 13:03 | Emergency (ER) | payer SELFPAY ==
[~2019-07-21] VITALS: Ht 162.6 cm; Wt 72.6 kg
[2019-07-21 13:08] VITALS: BP 146/86
--- NOTE | 2019-07-21 13:12 | NUR ---
58 Y/O FEMALE BIBA C/O RT FOOT PAIN X 3 YEARS. PT ABLE TO AMBULATE. +CMS. VSS
--- NOTE | 2019-07-21 13:13 | NUR ---
DR LEUNG AT BEDSIDE EXAMINING PT.
--- NOTE | 2019-07-21 13:14 | NUR ---
PT REFUSING TO BE SEEN BY DR LEUNG. SCREAMING AND YELLING. SECURITY CALLED.
--- NOTE | 2019-07-21 13:14 | NUR ---
PT GIVEN BUS PASS FOR TRANSPORTATION.
--- NOTE | 2019-07-21 13:15 | NUR ---
SECURITY AT BEDSIDE.
--- NOTE | 2019-07-21 13:29 | NUR ---
BSUHRA SPEAKING WITH PATIENT WITH DR LEUNG. PT REFUSING TO BE SEEN BY DR LEUNG.
--- NOTE | 2019-07-21 13:32 | NUR ---
PT REFUSED TO BE SEEN BY . REFUSED ALL CARE PROVIDED, REFUSED TO TAKE BUS PASS. WHEELCHAIR ASSISTED BY SECURITY OUT OF FACILITY.
[2019-07-21 13:33] VITALS: BP 146/86
--- NOTE | 2019-07-21 13:33 | NUR ---
PATIENT ELOPED FROM FACILITY. DISCHARGE INSTRUCTIONS NOT GIVEN TO PATIENT. DR. LEUNG NOTIFIED.
== END 2019-07-21 13:33 | disposition left against medical advice (07) ==
LOC: MED 13:03
DX: M79.671 Pain in right foot (principal); Z59.0 Homelessness
CPT/HCPCS: 99283

== ENCOUNTER 2019-07-21 18:07 | Emergency (ER) | payer SELFPAY ==
[~2019-07-21] VITALS: Ht 162.6 cm; Wt 67.1 kg
[2019-07-21 18:17] VITALS: BP 160/88
--- NOTE | 2019-07-21 18:20 | NUR ---
PT WAITING IN PDS CAR
--- NOTE | 2019-07-21 18:21 | NUR ---
PREBOOK BIB [place] [employer]. PTS BP NEEDS TO BE MEDICALLY CLEARED FOR BOOKING PER PD. PT HAS NO COMPLAINTS AT THIS TIME. DENIES PAIN.
--- NOTE | 2019-07-21 19:00 | NUR ---
MARSHA NARAYAN AT [place] [employer] CAR TO SEE PT
--- NOTE | 2019-07-21 19:06 | NUR ---
Patient discharged WITH OKAY TO BOOK. Written and verbal after care instructions given and explained REGARDING MEDICAL CLEARANCE. Patient alert, oriented and PD Verbalized understanding of instructions. Police with in custody. All questions addressed prior to discharge. ID band removed. Patient advised to follow up with PMD AFTER BEING RELEASED.
== END 2019-07-21 19:06 ==
LOC: MED 18:07
DX: Z02.89 Encounter for other administrative examinations (principal); F10.129 Alcohol abuse with intoxication, unspecified
CPT/HCPCS: 99283

== ENCOUNTER 2019-08-11 09:44 | Emergency (ER) | payer SELFPAY ==
[~2019-08-11] VITALS: Ht 165.1 cm; Wt 68.0 kg
--- NOTE | 2019-08-11 09:44 | NUR ---
PATIENT BIBA TO BED 7 AT THIS TIME.
[2019-08-11 09:48] VITALS: BP 165/68
--- NOTE | 2019-08-11 09:57 | NUR ---
58 YO FEMALE BIBA FOR ETOH. PT IS CURENTLY CALM AND COOPERTAIVE. AO X2 TO PERSON AND PLACE ONLY.
--- NOTE | 2019-08-11 10:10 | NUR ---
GAVE PT SNACKS AND ORDERED A FOOD TRAY. PT IS CALM AND QUIET. REFUSES FLUIDS AT THIS TIME.
--- NOTE | 2019-08-11 10:26 | NUR ---
MEAL TRAY RECEIVED. PT EATING AT THIS TIME
--- NOTE | 2019-08-11 11:52 | NUR ---
PT ATE 100% OF MEAL TRAY. PT IS SLEEPING AT THIS TIME.
--- NOTE | 2019-08-11 13:04 | NUR ---
pt sleeping at this time.
--- NOTE | 2019-08-11 14:31 | NUR ---
PT IS ABLE TO TRANSFER FROM BED TO WHEELCHAIR. PT IS ABLE TO FOLLOW COMMANDS AND IS ABLE TO RESPOND IN AN APPROPRIATE MANNER.
[2019-08-11 14:41] VITALS: BP 138/74
--- NOTE | 2019-08-11 14:41 | NUR ---
Patient discharged with v/s stable. Written and verbal after care instructions given and explained. Patient verbalized understanding. Wheel Chair Assisted with to home.Given a bus pass and a sack lunch. All questions addressed prior to discharge. Advised to follow up with PMD.
== END 2019-08-11 14:41 | disposition home or self-care (01) ==
LOC: MED 09:44
DX: F10.129 Alcohol abuse with intoxication, unspecified (principal); Z79.899 Other long term (current) drug therapy
CPT/HCPCS: 99283

== ENCOUNTER 2019-08-12 16:50 | Emergency (ER) | payer SELFPAY ==
[~2019-08-12] VITALS: Ht 160 cm; Wt 68.0 kg
[2019-08-12 16:56] VITALS: BP 212/183
--- NOTE | 2019-08-12 17:08 | NUR ---
58/F VIA EMS FOR ETOH. ALERT TO NAME, BIRTHDAY, PLACE. +ETOH ODOR. NO DISTRESS NOTED. DR OCHOA TO PERFORM MSE CHAIRSIDE IN TRIAGE.
--- NOTE | 2019-08-12 17:25 | NUR ---
BUS PASS PROVIDED. REFUSING OTHER RESOURCES.
--- NOTE | 2019-08-12 17:29 | NUR ---
PT REFUSED DISCHARGE INSTRUCTIONS. ATTEMPTED TO PROVIDE PT WITH D/C EDUCATION. PT STATED "I DONT WANT THAT SHIT"
[2019-08-12 17:30] VITALS: BP 212/183
--- NOTE | 2019-08-12 17:30 | NUR ---
PT REFUSING TO LEAVE FACILITY. SECURITY CALLED.
--- NOTE | 2019-08-12 17:35 | NUR ---
PT SCREAMING IN LOBBY. SECURITY ESCORTING PT OUT OF FACILITY.
== END 2019-08-12 17:29 | disposition home or self-care (01) ==
LOC: MED 16:50
DX: G89.29 Other chronic pain (principal); M25.571 Pain in right ankle and joints of right foot; F10.129 Alcohol abuse with intoxication, unspecified; Z79.899 Other long term (current) drug therapy
CPT/HCPCS: 99283

== ENCOUNTER 2019-08-13 12:32 | Emergency (ER) | payer SELFPAY ==
[~2019-08-13] VITALS: Ht 157.5 cm; Wt 63.5 kg
[2019-08-13 12:34] VITALS: BP 136/84
--- NOTE | 2019-08-13 13:48 | NUR ---
Patient discharged with v/s stable. Written and verbal after care instructions given and explained. Patient verbalized understanding. All questions addressed prior to discharge. Advised to follow up with PMD. Security to escort patient out of facililty.
[2019-08-13 13:49] VITALS: BP 136/84
== END 2019-08-13 13:48 | disposition home or self-care (01) ==
LOC: MED 12:32
DX: G89.29 Other chronic pain (principal); M25.571 Pain in right ankle and joints of right foot; Z59.0 Homelessness; Z79.899 Other long term (current) drug therapy
CPT/HCPCS: 73610; 99283

== ENCOUNTER 2019-08-16 16:08 | Emergency (ER) | payer SELFPAY ==
[~2019-08-16] VITALS: Ht 160 cm; Wt 68.0 kg
[2019-08-16 16:10] VITALS: BP 172/123
--- NOTE | 2019-08-16 19:23 | NUR ---
PT BLE WITH FLUSHED WITH CAP REFILL<3S AND NONPITTING EDEMA, POOR HYGIENE NOTED, NO OPEN SORES.
--- NOTE | 2019-08-16 19:23 | NUR ---
58/F BIBA FOR ETOH INTOXICATION AND CHRONIC R FOOT/ANKLE PAIN. R FOOT/ANKLE, +CMS, PT REPORTS BEING UNABLE TO AMBULATE. PT DENIES CP, SOB, N/V. PT AOX4, PERRLA 3MM, SLURRED SPEECH NOTED, PT REPORTS ETOH USE TODAY, SKIN FLUSHED WARM AND DRY, POOR HYGIENE NOTED, PT IS HOMELESS. LUNG SOUNDS CLEAR BL. S1S2 PRESENT. HX HTN, ETOH ABUSE RX NONCOMPLIANT
--- NOTE | 2019-08-16 19:45 | NUR ---
DR LARA AT BEDSIDE FOR MSE. DR LARA MADE AWARE OF ELEVATED BP.
--- NOTE | 2019-08-16 19:50 | NUR ---
PT BLE CLEANED WITH SOAP AND WATER, PAT DRY, GAVE NEW SOCKS.
[2019-08-16 21:31] VITALS: BP 180/97
--- NOTE | 2019-08-16 21:31 | NUR ---
Patient discharged with v/s stable. Written and verbal after care instructions given and explained. Patient verbalized understanding. Wheel Chair Assisted to home. All questions addressed prior to discharge. Advised to follow up with PMD. PT PROVIDED A HOMELESS MEAL PLAN, BUS PASS, AND PT DECLINED TO SIGN RESOURCE PACKAGE.
--- NOTE | 2019-08-16 21:34 | NUR ---
PT WITH APPROPRIATE CLOTHES FOR WEATHER.
== END 2019-08-16 21:31 | disposition home or self-care (01) ==
LOC: MED 16:08
DX: G89.29 Other chronic pain (principal); M25.571 Pain in right ankle and joints of right foot; F10.129 Alcohol abuse with intoxication, unspecified; I10 Essential (primary) hypertension; Z79.899 Other long term (current) drug therapy; Z59.0 Homelessness
CPT/HCPCS: 73610; 99283

== ENCOUNTER 2019-08-30 10:22 | Emergency (ER) | payer SELFPAY ==
[~2019-08-30] VITALS: Ht 167.6 cm; Wt 74.8 kg
[2019-08-30 10:42] VITALS: BP 131/91
--- NOTE | 2019-08-30 10:48 | NUR ---
LENY TORRES CALLED TO HELP FACILITATE AIDE TO SHOWER----
--- NOTE | 2019-08-30 11:40 | NUR ---
PT ACCOMPANIED BY DRY COLOR TESTER AND HOUSE SUP TO SHOWERS VIA WC
--- NOTE | 2019-08-30 15:07 | NUR ---
PT [id number]. RESP EVEN AND UNLABORED. PT ABLE TO TRANSFER TO WHEELCHAIR. NO DISTRESS NOTED AT THIS TIME/
[2019-08-30 15:31] VITALS: BP 145/78
--- NOTE | 2019-08-30 15:33 | NUR ---
Patient discharged with v/s stable. Written and verbal after care instructions given and explained. Patient alert, oriented and verbalized understanding of instructions. Wheel Chair Assisted with by caregiver. All questions addressed prior to discharge. ID band removed. Patient advised to follow up with PMD. Opportunity to ask questions provided and answered.
== END 2019-08-30 15:33 | disposition home or self-care (01) ==
LOC: MED 10:22
DX: M25.571 Pain in right ankle and joints of right foot (principal); G89.29 Other chronic pain; I10 Essential (primary) hypertension; Z79.899 Other long term (current) drug therapy
CPT/HCPCS: 99282